=== PATIENT | male | born 1990 | race Caucasian/White ===

== ENCOUNTER 2018-05-10 08:15 | Emergency (ER) | payer OTHER ==
[~2018-05-10] VITALS: Ht 182.9 cm; Wt 105.0 kg
[~2018-05-10 08:15] MED LIST: TOBRA.3%O OS; Z.0.NO CURRENT MEDS
[2018-05-10 08:20] VITALS: BP 143/74; PULSE 84; RESP 16; TEMP 98.2; O2SAT 96
[2018-05-10] MEDS ORDERED: TETANUS/DIPHTHERIA TOXOID ADULT 0.5 ML VIAL IM ONE (09:00)
[2018-05-10] MEDS ORDERED: LIDOCAINE HCL 1% 20 ML VIAL INFIL ONE (09:00)
[2018-05-10] MEDS ORDERED: CEPHALEXIN MONOHYDRATE 500 MG CAP PO ONE (09:00)
[2018-05-10] MEDS ORDERED: CEPH-460 PO (09:13)
[2018-05-10] MEDS ORDERED: HYDR-3288 PO (09:13)
[2018-05-10] MEDS ORDERED: IBUP1TAB7 PO (09:31)
[2018-05-10] MEDS ORDERED: BACT800T5 PO (09:31)
--- NOTE | 2018-05-10 09:33 | PD ---
HPI Chief Complaint: Skin Problem Time Seen by Provider: 09:25 Travel History International Travel<30 days: No Contact w/Intl Traveler<30days: No Traveled to known affect area: No History of Present Illness HPI This is a 27-year-old male here with a possible abscess to his left breast. Patient reports he noticed an area of tenderness 4 days ago. He does have a nipple piercing which is been present for 2 years. He denies fever or chills. He reports the area began to spontaneously drain through a small opening yesterday. He reports constant aching pain to the area. Severity is mild to moderate. No aggravating or alleviating factors. PFSH Past Medical History Medical History: Denies Significant Hx Diminished Hearing: No Tetanus Vaccination: Unknown Past Surgical History Surgical History: No Previous Surgery Social History Alcohol Use: No Tobacco Use: No Substance Use: No Allergies-Medications (Allergen,Severity, Reaction): Coded Allergies: No Known Allergies (Verified , 07/07/10) Reported Meds & Prescriptions Reported Meds & Active Scripts Active [place] (Hydrocodone-Acetaminophen) 7.5-325 mg Tab 1 Tab PO Q4H PRN Keflex (Cephalexin) 500 Mg Cap 500 Mg PO Q6H 7 Days Review of Systems Except as stated in HPI: all other systems reviewed are Neg General / Constitutional: No: Fever Physical Exam Narrative GENERAL: Alert and well-appearing 27-year-old male SKIN: 4 cm area of induration, erythema, with central fluctuance to the left medial aspect of the breast approximately 2 cm distance from the areola. No lymphangitis HEAD: Normocephalic. EYES:No injection or drainage. NECK: Supple, trachea midline. No lymphadenopathy. CARDIOVASCULAR: Regular rate and rhythm without murmurs, gallops, or rubs. RESPIRATORY: Breath sounds equal bilaterally. No accessory muscle use. GASTROINTESTINAL: Abdomen soft, non-tender, nondistended. MUSCULOSKELETAL: No cyanosis, or edema. Data Data Last Documented VS Vital Signs Date Time Temp Pulse Resp B/P (MAP) Pulse Ox O2 Delivery O2 Flow Rate FiO2 05/10/18 08:20 98.2 84 16 143/74 (97) 96 Orders Orders Cephalexin (Keflex) (05/10/18 09:00) Tetanus/Diphtheria Tox Adult (Tetanus/Di (05/10/18 09:00) Lidocaine 1% Inj (Xylocaine 1% Inj) (05/10/18 09:00) [facility] Medical Decision Making Medical Screen Exam Complete: Yes Emergency Medical Condition: Yes Differential Diagnosis Abscess, cellulitis, infected piercing Narrative Course 27-year-old male here with abscess to the left chest wall involving medial aspect of the breast. Patient is nontoxic appearing. He is afebrile. Incision and drainage was performed. Patient was encouraged to remove the piercing. Procedures Procedure Narrative INCISION AND DRAINAGE OF ABSCESS: The area was prepped and was sterilely draped. A subcutaneous wheal of 1 % Xylocaine was used to anesthetize the area properly. A number 11 scalpel was used to make a 0.5 -cm incision across the area of the abscess. The abscess was drained, complex loculations were broken down, and irrigated with normal saline. Sterile dressing applied. Patient advised to have packing removed in two days. Diagnosis Primary Impression: Abscess Referrals: Primary Care Physician Patient Instructions: General Instructions Departure Forms: Work Release, Enter return to work date: May 11, 2018 Tests/Procedures Additional Instructions: Medications as directed. Apply warm compresses to the area several times per day. Wash the area with soap and water daily. Change the dressing daily. Scripts Ibuprofen (Ibuprofen) 800 Mg Tab 800 MG PO Q6HR Y for PAIN, #40 TAB 0 Refills Prov: Eli Ortiz 05/10/18 Sulfamethoxazole-Trimethoprim (Bactrim DS) 800-160 Mg Tab 1 TAB PO BID for Infection, #20 TAB 0 Refills Prov: Eli Ortiz 05/10/18 Cephalexin (Keflex) 500 Mg Cap 500 MG PO Q6H for Infection for 7 Days, #28 CAP 0 Refills Prov: Gerald Mcintyre MD 05/10/18 Disposition: 01 DISCHARGE HOME Condition: Stable Eli Ortiz May 10, 2018 09:33
== END 2018-05-10 09:49 | disposition home or self-care (01) ==
LOC: PHED 08:15
DX: N61.1 Abscess of the breast and nipple (principal); W45.8XXA Other foreign body or object entering through skin, initial encounter; Z23 Encounter for immunization
CPT/HCPCS: 10061; 90471; 90714